=== PATIENT | male | born 1950 | race Caucasian/White ===

== ENCOUNTER → 2019-02-21 | Outpatient (CLI) | payer MEDICARE ==
[2019-02-21 09:09] LABS: BUN/CREATININE RATIO 21; CARBON DIOXIDE 20 MMOL/L (21-32); CHLORIDE 101 MMOL/L (98-107); CREATININE SERUM 0.86 MG/DL (0.60-1.30); GFR ESTIMATED > 60; GLUCOSE 148 MG/DL (70-105); POTASSIUM 4.2 MMOL/L (3.6-5.0); SODIUM 140 MMOL/L (135-145)
[2019-02-21 09:10] LABS: ALANINE AMINOTRANSFERASE 23 U/L (0-55); ALBUMIN 4.3 GM/DL (3.2-4.5); ALKALINE PHOSPHATASE 39 U/L (40-136); CALCIUM 9.1 MG/DL (8.5-10.1); TOTAL PROTEIN 7.1 GM/DL (6.4-8.2)
[2019-02-21 15:04] LABS: CHOLESTEROL 129 MG/DL (< 200); HDL CHOLESTEROL 27 MG/DL (40-60); TRIGLYCERIDES 99 MG/DL (<150); VLDL CHOLESTEROL 20 MG/DL (5-40)
== END ==
LOC: LAB FS 08:20
PROVIDERS: ATTEND Pediatrics
DX: E11.00 Type 2 diabetes mellitus with hyperosmolarity without nonketotic hyperglycemic-hyperosmolar coma (NKHHC) (principal); E78.00 Pure hypercholesterolemia, unspecified
CPT/HCPCS: 36415; 80053; 80061; 83036

== ENCOUNTER → 2022-09-13 | Outpatient (CLI) | payer MEDICARE ==
--- NOTE | 2022-09-13 16:11 | Diagnostic Imaging Report ---
INDICATION: BILATERAL PRIMARY OSTEOARTHRITIS OF KNEE, PAIN TECHNIQUE: 3 views of the bilateral knees, 1:39 PM CORRELATION STUDY: None FINDINGS: There is very mild joint space narrowing in both medial and lateral compartments as well as the patellofemoral compartments. Minimal marginal osteophyte formation. The articular surfaces are otherwise smooth and maintained. No acute bony abnormality. No suggestion for calcified intraarticular loose body. Soft tissues are unremarkable. IMPRESSION: 1. Negative for acute bony abnormality of the knee. Mild multicompartment degenerative changes of both knees. Dictated by: Dictated on workstation # [id number]
== END ==
LOC: RAD FS 13:20
PROVIDERS: ATTEND Nurse Practitioner
DX: M17.0 Bilateral primary osteoarthritis of knee (principal)